=== PATIENT | female | born 1980 | race Caucasian/White ===

== ENCOUNTER 2020-03-08 19:44 | Emergency (ER) | payer MEDICAID ==
[~2020-03-08] VITALS: Ht 162.6 cm; Wt 63.6 kg
[2020-03-08 19:48] VITALS: Ht 162.6 cm; Wt 63.6 kg
[2020-03-08] MEDS ORDERED: AUGMENTIN 875-11 TAB PO (20:01)
[2020-03-08] MEDS ORDERED: FLUTICASONE PRO16 GM NASAL (20:01)
[2020-03-08 20:20] VITALS: BP 146/88
== END 2020-03-08 20:20 | disposition home or self-care (01) ==
LOC: D.ER 19:44
DX: H65.191 Other acute nonsuppurative otitis media, right ear (principal); R05 Cough; Z72.0 Tobacco use

== ENCOUNTER 2021-03-02 19:04 | Emergency (ER) | payer MEDICAID ==
[~2021-03-02] VITALS: Ht 162.6 cm; Wt 63.6 kg
[~2021-03-02 19:04] MED LIST: AUGMENTIN 875-11 TAB PO; FLUTICASONE PRO16 GM NASAL
[2021-03-02 19:19] VITALS: BP 167/112; Ht 162.6 cm; Wt 63.6 kg
[2021-03-02] MEDS ORDERED: ULTRAM50 MG PO (20:20)
== END 2021-03-02 21:13 | disposition home or self-care (01) ==
LOC: D.ER 19:04
DX: M25.512 Pain in left shoulder (principal); M77.8 Other enthesopathies, not elsewhere classified